=== PATIENT | male | born 1975 | race Caucasian/White ===

== ENCOUNTER 2017-01-14 17:23 | Emergency (ER) | payer MEDICAID, OTHER ==
[2017-01-14 18:16] VITALS: BP 113/73
--- NOTE | 2017-01-14 18:34 | UC ---
Throat Pain/Nasal Ezra HPI - HPI Summary HPI Summary: sore throat since yest. Mother also had strep. No fever. - History of Current Complaint Chief Complaint: UCRespiratory Stated Complaint: SORE THROAT Time Seen by Provider: 01/14/17 18:33 Hx Obtained From: Patient Onset/Duration: Sudden Onset, Lasting Hours, Still Present Severity: Moderate Pain Intensity: 8 Pain Scale Used: 0-10 Numeric Cough: None Associated Signs & Symptoms: Positive: Dysphagia, Sinus Discomfort - Allergies/Home Medications Allergies/Adverse Reactions: Allergies Allergy/AdvReac Type Severity Reaction Status Date / Time No Known Allergies Allergy Verified 01/14/17 18:16 Home Medications: Home Medications Carvedilol TAB* [Coreg TAB*] 3.125 mg PO BID 01/14/17 [History Confirmed ] Cyclobenzaprine TAB* [Flexeril 10 MG TAB*] 10 mg PO TID PRN 01/14/17 [History Confirmed 01/14/17] PMH/Surg Hx/FS Hx/Imm Hx Cardiovascular History: Hypertension - Surgical History Surgical History: Yes Surgery Procedure, Year, and Place: cardiac ablation - Family History Known Family History: Positive: Hypertension - Social History Occupation: Employed Full-time Alcohol Use: None Substance Use Type: None Smoking Status (MU): Never Smoked Tobacco Review of Systems Constitutional: Negative Skin: Negative Eyes: Negative ENT: Sore Throat Respiratory: Negative Cardiovascular: Negative Gastrointestinal: Negative Genitourinary: Negative Motor: Negative Neurovascular: Negative Musculoskeletal: Negative Neurological: Negative Psychological: Negative All Other Systems Reviewed And Are Negative: Yes Physical Exam Triage Information Reviewed: Yes Appearance: Well-Nourished, Ill-Appearing, Pain Distress Vital Signs: Initial Vital Signs Temp 99.1 F 01/14/17 18:09 Pulse 85 01/14/17 18:09 Resp 18 01/14/17 18:09 BP 113/73 01/14/17 18:09 Pulse Ox 98 01/14/17 18:09 Vital Signs Reviewed: Yes Eyes: Positive: Conjunctiva Clear ENT: Positive: Pharyngeal erythema, TMs normal. Negative: Tonsillar swelling, Tonsillar exudate, Muffled/hoarse voice Neck: Positive: Supple, Nontender, No Lymphadenopathy Respiratory: Positive: Lungs clear, Normal breath sounds, No respiratory distress Cardiovascular: Positive: RRR, No Murmur, Pulses Normal, Brisk Capillary Refill Musculoskeletal: Positive: Strength Intact, ROM Intact Neurological: Positive: Alert, Muscle Tone Normal Psychological Exam: Normal Skin Exam: Normal Throat Pain/Nasal Course/Dx - Course Course Of Treatment: rapid A positive - Differential Dx/Diagnosis Provider Diagnoses: strep pharyngitis Discharge - Discharge Plan Condition: Stable Disposition: HOME Prescriptions: Amoxicillin PO (*) [Amoxicillin 875 MG (*)] 875 mg PO BID #20 tab Patient Education Materials: Strep Throat (ED) Referrals: Marsha Santana [Primary Care Provider] -
== END 2017-01-14 19:01 | disposition home or self-care (01) ==
LOC: UCCORT 17:23
DX: J02.0 Streptococcal pharyngitis (principal); I10 Essential (primary) hypertension
CPT/HCPCS: 87651; 99212; G0463

== ENCOUNTER 2017-12-18 17:40 | Emergency (ER) | payer OTHER ==
[2017-12-18 18:19] VITALS: BP 149/89
--- NOTE | 2017-12-18 18:44 | UC ---
Laceration HPI - HPI Summary HPI Summary: Playing with dog who scratched his left ear. - History Of Current Complaint Chief Complaint: UCSkin Stated Complaint: L EAR CUT Time Seen by Provider: 12/18/17 18:34 Hx Obtained From: Patient Laceration Location: Ear Mechanism Of Injury: Sharp Trauma - dogs nail Onset/Duration: Sudden Onset Severity: Mild Pain Intensity: 2 Aggravating Factors: Nothing - Allergies/Home Medications Allergies/Adverse Reactions: Allergies Allergy/AdvReac Type Severity Reaction Status Date / Time No Known Allergies Allergy Verified 12/18/17 18:20 Home Medications: Home Medications Citalopram TAB* [Celexa TAB*] 20 mg PO DAILY 12/18/17 [History Confirmed ] Sotalol TAB* [Betapace 80 MG TAB*] 80 mg PO BID 12/18/17 [History Confirmed ] PMH/Surg Hx/FS Hx/Imm Hx Cardiovascular History: Atrial Fibrillation - Surgical History Surgical History: Yes Surgery Procedure, Year, and Place: cardiac ablation - Family History Known Family History: Positive: Hypertension - Social History Occupation: Employed Full-time Lives: With Family Alcohol Use: None Substance Use Type: None Smoking Status (MU): Never Smoked Tobacco Have You Smoked in the Last Year: No Review of Systems ENT: Nasal Discharge - from allergies Respiratory: Cough Is Patient Immunocompromised?: No All Other Systems Reviewed And Are Negative: Yes Physical Exam Triage Information Reviewed: Yes Appearance: Well-Appearing, No Pain Distress, Well-Nourished Vital Signs: Initial Vital Signs Temp 98.7 F 12/18/17 18:16 Pulse 76 12/18/17 18:16 Resp 18 12/18/17 18:16 BP 149/89 12/18/17 18:16 Pulse Ox 97 12/18/17 18:16 Vital Signs Reviewed: Yes Eyes: Positive: Conjunctiva Clear Neck exam: Normal Respiratory Exam: Normal Cardiovascular Exam: Normal Musculoskeletal Exam: Normal Neurological Exam: Normal Psychological Exam: Normal Skin: Positive: Other - laceration left posterior ear Laceration Repair - Laceration Repair 1 Description: Linear Laceration Size After Repair: Length (cm) - 4.5 Modified For Repair: No Cleansing Completed Via Routine Prep: Yes Irrigation With Pressure Irrigation Device: Yes Closure Material: Skin Adhesive Laceration Course/Dx - Differential Dx - Laceration/Wound Differental Diagnoses: Abrasion, Bite Injury, Cellulitis, Laceration Provider Diagnoses: Open wound left ear Discharge - Sign-Out/Discharge Documenting (check all that apply): Discharge/Admit/Transfer - Discharge Plan Condition: Stable Disposition: HOME Patient Education Materials: Skin Adhesive Care (ED) Referrals: Marsha Santana [Primary Care Provider] - Additional Instructions: Protect the wound from the sun for the whole summer to prevent worsening of the scar. Watch for signs of infection, redness, warmth, swelling and increased pain. - Billing Disposition and Condition Condition: STABLE Disposition: Home Images Head: 1 - 4.5 cm laceration extending to the tip of the ear lobe
[2017-12-18] MEDS ORDERED: Tetan/Diph/Pertus SYR(Tdap)* 0.5 ML SYR(BOOSTRIX) use SYR IM ONE (18:51)
== END 2017-12-18 19:03 | disposition home or self-care (01) ==
LOC: UCCORT 17:40
DX: S01.312A Laceration without foreign body of left ear, initial encounter (principal); W45.8XXA Other foreign body or object entering through skin, initial encounter; Y93.9 Activity, unspecified; Y99.9 Unspecified external cause status
CPT/HCPCS: 90471; 90715; 99211; G0463